=== PATIENT | female | born 1975 | race Hispanic/Latino ===

== ENCOUNTER 2018-04-12 15:03 | Emergency (ER) | payer OTHER ==
[2018-04-12 19:47] LABS: Basophils # (Auto) 0.1 K/mm3 (0.0-0.1); Basophils % (Auto) 0.7 % (0.0-1.8); Eosinophils # (Auto) 0.4 K/mm3 (0.0-0.4); Eosinophils % (Auto) 3.5 % (0.0-4.3); Hemoglobin 13.8 gm/dl (10.1-14.3); Lymphocytes # (Auto) 2.9 K/mm3 (1.2-5.4); Lymphocytes % (Auto) 25.6 % (13.4-35.0); Mean Corpuscular HGB Conc 34 % (30-34); Mean Corpuscular Hemoglobin 31 pg (28-32); Mean Corpuscular Volume 93 fl (79-97); Monocytes # (Auto) 0.5 K/mm3 (0.0-0.8); Monocytes % (Auto) 4.7 % (0.0-7.3); Platelet Count 281 K/mm3 (140-440); Red Blood Count 4.41 M/mm3 (3.65-5.03); Red Cell Distribution Width 14.6 % (13.2-15.2)
[2018-04-12 19:56] LABS: Alanine Aminotransferase 18 units/L (7-56); Albumin 3.8 g/dL (3.9-5); BUN/Creatinine Ratio 12; Blood Urea Nitrogen 7 mg/dL (7-17); Calcium 9.4 mg/dL (8.4-10.2); Hemolysis Index 11
[2018-04-12] MEDS ORDERED: ZOFRAN IV ONE (22:35)
[2018-04-12] MEDS ORDERED: NACL 0.9% 1000 ML 1,000 ML IV ONE (22:35)
[2018-04-12] MEDS ORDERED: DILAUDID IV ONE (22:35)
--- NOTE | 2018-04-12 22:36 | Emergency Department Report ---
ED General Adult HPI - General Chief complaint: Abdominal Pain Stated complaint: ABD PAIN/VOMITING/DIARRHEA Source: patient, RN notes reviewed Mode of arrival: Ambulatory Limitations: No Limitations - History of Present Illness Initial comments: This is a 42-year-old female who is unknown to this provider previously, reports that her primary care doctor is up in [place]. Reports a past medical history of endometriosis. This was diagnosed laparoscopically. Also has surgical history for cholecystectomy. The patient presents to the ER with 2-3 days and unprovoked nausea, vomiting and diarrhea. She reports 20 episodes of nausea and vomiting in the past 24-48 hours. The emesis is nonbloody and nonbilious. She reports that the diarrhea was initially brown and clear, then changed to bloody. She denies urinary symptoms and reports that she is not . She denies recent travel and denies recent antibiotic use. The patient reports that she can tolerate hydromorphone and Zofran for nausea and vomiting. -: Gradual Location: abdomen Radiation: non-radiation Quality: aching Consistency: constant Improves with: rest Worsens with: eating Associated Symptoms: loss of appetite, malaise, nausea/vomiting, weakness. denies: confusion, chest pain, cough, diaphoresis, fever/chills, headaches, rash , seizure, shortness of breath, syncope - Related Data Previous Rx's Medication Instructions Recorded Last Taken Type Acetaminophen [Tylenol Arthritis] 650 mg PO Q6HR PRN #30 tablet.er 04/13/18 Unknown Rx Ciprofloxacin HCl [Cipro] 500 mg PO BID #10 tablet 04/13/18 Unknown Rx Promethazine [Phenergan TAB] 25 mg PO Q6HR PRN #30 tab 04/13/18 Unknown Rx metroNIDAZOLE [Flagyl] 500 mg PO Q8HR #15 tablet 04/13/18 Unknown Rx Allergies Allergy/AdvReac Type Severity Reaction Status Date / Time ketorolac [From Toradol] Allergy Hives Verified 04/12/18 15:12 nitrofurantoin Allergy Hives Verified 04/12/18 15:13 [From Macrobid] sulfamethoxazole Allergy Hives Verified 04/12/18 15:13 [From Bactrim] tramadol [From Ultram] Allergy Hives Verified 04/12/18 15:12 vancomycin Allergy Hives Verified 04/12/18 15:14 metoclopramide [From Reglan] AdvReac Unknown Verified 04/12/18 15:14 ED Review of Systems ROS: Stated complaint: ABD PAIN/VOMITING/DIARRHEA Other details as noted in HPI Comment: All other systems reviewed and negative ED Past Medical Hx - Past Medical History Previous Medical History?: No - Surgical History Past Surgical History?: Yes Hx Cholecystectomy: Yes - Social History Smoking Status: Current Every Day Smoker Substance Use Type: None - Medications Home Medications: Home Medications Medication Instructions Recorded Confirmed Last Taken Type Acetaminophen [Tylenol Arthritis] 650 mg PO Q6HR PRN #30 tablet.er 04/13/18 Unknown Rx Ciprofloxacin HCl [Cipro] 500 mg PO BID #10 tablet 04/13/18 Unknown Rx Promethazine [Phenergan TAB] 25 mg PO Q6HR PRN #30 tab 04/13/18 Unknown Rx metroNIDAZOLE [Flagyl] 500 mg PO Q8HR #15 tablet 04/13/18 Unknown Rx ED Physical Exam - General Limitations: No Limitations General appearance: alert, anxious, in distress, obese - Head Head exam: Present: atraumatic, normocephalic - Eye Eye exam: Present: normal appearance, EOMI. Absent: nystagmus - ENT ENT exam: Present: normal exam, normal orophraynx, mucous membranes moist, normal external ear exam - Neck Neck exam: Present: normal inspection, full ROM. Absent: tenderness, meningismus - Respiratory Respiratory exam: Present: normal lung sounds bilaterally. Absent: respiratory distress, wheezes, rales, rhonchi, stridor - Cardiovascular Cardiovascular Exam: Present: normal rhythm, tachycardia, normal heart sounds. Absent: systolic murmur, diastolic murmur, rubs, gallop - GI/Abdominal GI/Abdominal exam: Present: soft. Absent: distended, tenderness, guarding, rebound, rigid, pulsatile mass - Rectal Rectal exam: Present: normal inspection, normal rectal tone, heme (+) stool, tenderness (there is an anal fissure noted at 12:00), other (escorted by TWAN Nowak) - Extremities Exam Extremities exam: Present: normal inspection, full ROM, normal capillary refill. Absent: tenderness, pedal edema, joint swelling, calf tenderness - Back Exam Back exam: Present: normal inspection, full ROM. Absent: tenderness, CVA tenderness (R), paraspinal tenderness, vertebral tenderness - Neurological Exam Neurological exam: Present: alert, oriented X3, CN II-XII intact, normal gait, other (Extraocular movements intact. Tongue midline. No facial droop. Facial sensation intact to light touch in the V1, V2, V3 distribution bilaterally. 5 and 5 strength in 4 extremities.. Sensation is intact to light touch in 4 extremities.). Absent: motor sensory deficit - Psychiatric Psychiatric exam: Present: anxious - Skin Skin exam: Present: warm, dry, intact, normal color. Absent: rash ED Course Vital Signs 04/12/18 04/12/18 04/12/18 15:08 22:12 23:38 Temperature 99.4 F 98.5 F Pulse Rate 108 H 94 H 84 Respiratory 16 18 Rate Blood Pressure 127/82 Blood Pressure 112/57 107/56 [Left] O2 Sat by Pulse 99 100 Oximetry - Reevaluation(s) Reevaluation #1: 04/13/18 00:05 Differential diagnosis, including but not limited to: Colitis, enteritis, anal fissure, inflammatory bowel disease, malignancy, intra-abdominal infection Assessment and plan: 42-year-old female who endorses abdominal cramping, nausea , vomiting and diarrhea, has anal fissure at 12:00. She is afebrile with reassuring vital signs and has unremarkable laboratory studies and is hemodynamically stable. The patient has been in the ER for hours and thus far I have not witnessed her vomit or defecate. A CT scan with IV contrast is pending, and she is treated symptomatically with hydromorphone and Zofran. IV fluids were ordered as well. Reevaluation #2: 04/13/18 01:18 Tachycardia is resolved. The patient reports that she feels much improved. No active nausea vomiting and diarrhea in the past few hours. CT scan suggests distal colitis. The patient will be started on appropriate and empiric antibiotic therapy, and she will be referred to outpatient gastroenterology. I also give the patient instructions on how to construct and perform sitz bath for her anal fissure. ED Medical Decision Making - Lab Data Result diagrams: 04/12/18 19:25 04/12/18 19:25 Vital Signs 04/12/18 04/12/18 04/12/18 15:08 22:12 23:38 Temperature 99.4 F 98.5 F Pulse Rate 108 H 94 H 84 Respiratory 16 18 Rate Blood Pressure 127/82 Blood Pressure 112/57 107/56 [Left] O2 Sat by Pulse 99 100 Oximetry Lab Results 04/12/18 04/12/18 04/12/18 Range/Units 19:25 19:25 22:40 WBC 11.4 H (4.5-11.0) K/mm3 RBC 4.41 (3.65-5.03) M/mm3 Hgb 13.8 (10.1-14.3) gm/dl Hct 41.0 (30.3-42.9) % MCV 93 (79-97) fl MCH 31 (28-32) pg MCHC 34 (30-34) % RDW 14.6 (13.2-15.2) % Plt Count 281 (140-440) K/mm3 Lymph % (Auto) 25.6 (13.4-35.0) % [place] % (Auto) 4.7 (0.0-7.3) % Eos % (Auto) 3.5 (0.0-4.3) % Baso % (Auto) 0.7 (0.0-1.8) % Lymph # 2.9 (1.2-5.4) K/mm3 [place] # 0.5 (0.0-0.8) K/mm3 Eos # 0.4 (0.0-0.4) K/mm3 Baso # 0.1 (0.0-0.1) K/mm3 Seg Neutrophils % 65.5 (40.0-70.0) % Seg Neutrophils # 7.5 (1.8-7.7) K/mm3 Sodium 139 (137-145) mmol/L Potassium 4.3 (3.6-5.0) mmol/L Chloride 100.6 (98-107) mmol/L Carbon Dioxide 26 (22-30) mmol/L Anion Gap 17 mmol/L BUN 7 (7-17) mg/dL Creatinine 0.6 L (0.7-1.2) mg/dL Estimated GFR > 60 ml/min BUN/Creatinine Ratio 12 % Glucose 94 (65-100) mg/dL Calcium 9.4 (8.4-10.2) mg/dL Total Bilirubin 0.40 (0.1-1.2) mg/dL AST 16 (5-40) units/L ALT 18 (7-56) units/L Alkaline Phosphatase 91 (35-129) units/L Total Protein 6.6 (6.3-8.2) g/dL Albumin 3.8 L (3.9-5) g/dL Albumin/Globulin Ratio 1.4 % HCG, Quant (0-4) mIU/mL Urine Color Yellow (Yellow) Urine Turbidity Clear (Clear) Urine pH 7.0 (5.0-7.0) Ur Specific [place] 1.003 (1.003-1.030) Urine Protein <15 mg/dl (Negative) mg/dL Urine Glucose (UA) Neg (Negative) mg/dL Urine Ketones Neg (Negative) mg/dL Urine Blood Mod (Negative) Urine Nitrite Neg (Negative) Urine Bilirubin Neg (Negative) Urine Urobilinogen < 2.0 (<2.0) mg/dL Ur Leukocyte Esterase Sm (Negative) Urine WBC (Auto) 3.0 (0.0-6.0) /HPF Urine RBC (Auto) 6.0 (0.0-6.0) /HPF U Epithel Cells (Auto) 3.0 (0-13.0) /HPF Amorphous Crystals Few 04/12/18 Range/Units 23:16 WBC (4.5-11.0) K/mm3 RBC (3.65-5.03) M/mm3 Hgb (10.1-14.3) gm/dl Hct (30.3-42.9) % MCV (79-97) fl MCH (28-32) pg MCHC (30-34) % RDW (13.2-15.2) % Plt Count (140-440) K/mm3 Lymph % (Auto) (13.4-35.0) % [place] % (Auto) (0.0-7.3) % Eos % (Auto) (0.0-4.3) % Baso % (Auto) (0.0-1.8) % Lymph # (1.2-5.4) K/mm3 [place] # (0.0-0.8) K/mm3 Eos # (0.0-0.4) K/mm3 Baso # (0.0-0.1) K/mm3 Seg Neutrophils % (40.0-70.0) % Seg Neutrophils # (1.8-7.7) K/mm3 Sodium (137-145) mmol/L Potassium (3.6-5.0) mmol/L Chloride (98-107) mmol/L Carbon Dioxide (22-30) mmol/L Anion Gap mmol/L BUN (7-17) mg/dL Creatinine (0.7-1.2) mg/dL Estimated GFR ml/min BUN/Creatinine Ratio % Glucose (65-100) mg/dL Calcium (8.4-10.2) mg/dL Total Bilirubin (0.1-1.2) mg/dL AST (5-40) units/L ALT (7-56) units/L Alkaline Phosphatase (35-129) units/L Total Protein (6.3-8.2) g/dL Albumin (3.9-5) g/dL Albumin/Globulin Ratio % HCG, Quant 0.707 (0-4) mIU/mL Urine Color (Yellow) Urine Turbidity (Clear) Urine pH (5.0-7.0) Ur Specific [place] (1.003-1.030) Urine Protein (Negative) mg/dL Urine Glucose (UA) (Negative) mg/dL Urine Ketones (Negative) mg/dL Urine Blood (Negative) Urine Nitrite (Negative) Urine Bilirubin (Negative) Urine Urobilinogen (<2.0) mg/dL Ur Leukocyte Esterase (Negative) Urine WBC (Auto) (0.0-6.0) /HPF Urine RBC (Auto) (0.0-6.0) /HPF U Epithel Cells (Auto) (0-13.0) /HPF Amorphous Crystals - Radiology Data Radiology results: pending, report reviewed Referring Physician: RAVINDRA MAURO Patient Name: MARTIR BISHOP Date of : 1975 Sex: Female Report Date: 2018-04-13 Report Status: Finalized Findings [facility] [address] [place] [address] Cat Scan Report Signed Patient: MARTIR BISHOP MR#: [id number] : 1975 Acct:[id number] Age/Sex: 42 / F ADM Date: 04/12/18 Loc: ED Attending Dr: Ordering Physician: RAVINDRA MAURO MD Date of Service: 04/12/18 Procedure(s): CT abdomen pelvis w con Accession Number(s): [id number] cc: RAVINDRA MAURO MD FINAL REPORT EXAM: CT ABDOMEN PELVIS W CON HISTORY: abd pain n/v TECHNIQUE: CT evaluation performed of the abdomen and pelvis following IV and oral contrast administration. Coronal and sagittal imaging also provided for interpretation. PRIORS: None. FINDINGS: Lung bases clear. Moderate hiatal hernia. Surgical absence of the gallbladder. The liver, pancreas, spleen, adrenal glands, kidneys and bladder are normal. The pelvic organs are normal. There is no evidence of mass, pathological calcification, or fluid collection noted within the abdomen or pelvis. The appendix is normal. There is thickening of the distal descending and sigmoid colon bowel wall. No adjacent inflammatory change. There is no lymphadenopathy. No acute osseous abnormality. Marked sclerosis of the sacroiliac joints. IMPRESSION: Suggested mild wall thickening of the descending/sigmoid colon which may be secondary to inflammatory or infectious colitis. There is no evidence of bowel perforation or obstruction. The appendix is normal. Moderate hiatal hernia. Bilateral sacroiliitis. Transcribed By: DT Dictated By: EDDIE HENSON DO Electronically Authenticated By: EDDIE HENSON DO Signed Date/Time: 04/13/18 0047 Critical care attestation.: If time is entered above; I have spent that time in minutes in the direct care of this critically ill patient, excluding procedure time. ED Disposition Clinical Impression: Colitis Disposition: DC-01 TO HOME OR SELFCARE Is pt being admited?: No Does the pt Need Aspirin: No Condition: Stable Instructions: Infectious Colitis (ED), Rectal Bleeding (ED), Anal Fissure (ED) Additional Instructions: Take the pain medication, nausea medication as needed/directed. Take the antibiotics as directed. Do not consume alcohol while taking antibiotics. Make certain to advance diet as tolerated, avoid consumption of heavy, spicy foods, and perform sitz bath and home as often as as needed. Follow up with a college tutor within the next 4-6 weeks. It is very important to closely follow up to exclude cancer, tumor, malignancy of the large intestine. Return to the ER right away with new pain, worsened pain, migration of pain, he was, chills, lethargy, irritability, projectile vomiting, change in mental status, confusion, inability to tolerate feedings. Referrals: PRIMARY CAREMD [Primary Care Provider] - 3-5 Days [facility] [Provider Group] - 3-5 Days
[2018-04-12 23:08] LABS: Amorphous Crystals,Urine Few; Bilirubin,Urine NEG (Negative); Blood,Urine MOD (Negative); Color,Urine Yellow (Yellow); Protein,Urine <15 mg/dL mg/dL (Negative); Urobilinogen,Urine < 2.0 mg/dL (<2.0)
--- NOTE | 2018-04-13 00:53 | Cat Scan Report ---
FINAL REPORT EXAM: CT ABDOMEN PELVIS W CON HISTORY: abd pain n/v TECHNIQUE: CT evaluation performed of the abdomen and pelvis following IV and oral contrast administration. Coronal and sagittal imaging also provided for interpretation. PRIORS: None. FINDINGS: Lung bases clear. Moderate hiatal hernia. Surgical absence of the gallbladder. The liver, pancreas, spleen, adrenal glands, kidneys and bladder are normal. The pelvic organs are normal. There is no evidence of mass, pathological calcification, or fluid collection noted within the abdomen or pelvis. The appendix is normal. There is thickening of the distal descending and sigmoid colon bowel wall. No adjacent inflammatory change. There is no lymphadenopathy. No acute osseous abnormality. Marked sclerosis of the sacroiliac joints. IMPRESSION: Suggested mild wall thickening of the descending/sigmoid colon which may be secondary to inflammatory or infectious colitis. There is no evidence of bowel perforation or obstruction. The appendix is normal. Moderate hiatal hernia. Bilateral sacroiliitis.
[2018-04-13 01:50] VITALS: BP 134/79
== END 2018-04-13 01:52 | disposition home or self-care (01) ==
LOC: ED 15:03
DX: K52.9 Noninfective gastroenteritis and colitis, unspecified (principal); F17.200 Nicotine dependence, unspecified, uncomplicated; Z90.49 Acquired absence of other specified parts of digestive tract; Z88.6 Allergy status to analgesic agent; Z88.2 Allergy status to sulfonamides; Z88.1 Allergy status to other antibiotic agents
CPT/HCPCS: 36415; 74177; 80053; 81001; 82271; 84702; 85025; 96361; 96374; 99284; J1170; J2405; J7030; Q9967